=== PATIENT | male | born 1950 | race Caucasian/White ===

== ENCOUNTER 2021-07-11 07:59 | Outpatient (RCR) | payer MEDICARE, SELFPAY ==
--- NOTE | 2021-07-11 08:35 | PTOPEVAL ---
Thank you for referring ANDREA MEDRANO to [facility].? The patient is scheduled to be seen for therapy? __2__x/week for 8 visits. Please review, sign, date and return this plan of care JOSEFA. I agree with and certify that the following plan of care is medically necessary. Referring Physician Date Admitting Provider: Attending Provider: Maegan Rousseau, TOBACCO CONDITIONER Referring Provider: *PT Outpatient Evaluation Start: 07/11/21 07:16 Freq: Status: Active Protocol: Document 07/11/21 07:55 JAMES (Rec: 07/11/21 08:34 [id number]) Therapy Assessment Status Assessment Status Assessment Status Evaluation Evaluation Information Problem Diagnosis right knee pain Onset 04/18/21 Subjective Information Pt. reports that he underwent Query Text:As Reported By Patient/ right knee arthorsocopy for Family torn meniscus on 04/18/21. He reports that he has had complication in regards to pain since surgery. He states that he did develop an infection initially following surgery. Pt. reports that he recently had fluid drained from the knee which has helped to ease some pain. Before his surgery he would walk 10- 12 miles a day. He reports that he has increased his distance to about 3 miles a day with walking recently after the fluid removal. He does enjoy wood working, but is limited slightly due to pain. He reports that his goal is to be able to standa and walk without pain. Prior Level of Function Activity Level (Last 3 Months) Occupation retired Hand Dominance Right Activity of Daily Living Ability Independent Indoor/Home Mobility Independent Community Mobility Independent Stairs Ability Independent Functional Cognition (Planning, Shopping Independent , Taking Medications) Cooking Yes Cleaning Yes Laundry Yes Shopping Yes Driving Yes Pain Assessment Timing of Pain Assessment Timing of Pain Assessment Pre-Treatment Pain Scale Pain Scale Used Numeric (1 - 10) Self Report Pain Assessment
--- NOTE | 2021-07-25 08:08 | PTOPEVAL ---
Thank you for referring ANDREA MEDRANO to [facility].? The patient is scheduled to be seen for therapy? ____x/week for ___ weeks. Please review, sign, date and return this plan of care JOSEFA. I agree with and certify that the following plan of care is medically necessary. Referring Physician Date Admitting Provider: Attending Provider: Maegan Rousseau, PLANT SPECIALIST Referring Provider: *PT Outpatient Evaluation Start: 07/11/21 07:16 Freq: Status: Active Protocol: Document 07/25/21 07:00 [facility] (Rec: 07/25/21 08:05 [facility] [email or web address]) Therapy Assessment Status Assessment Status Assessment Status Progress Evaluation Information Problem Diagnosis right knee pain Onset 04/18/21 Additional Evaluation Detail LEFS = 1% functionally declined Subjective Information patient reports he elisha Query Text:As Reported By Patient/ good this date. he reports he Family has no pain this morning in the R knee. he reports he is back to nearly all prior level activities, except he has not returned to his 10-12 miles walking a day yet. Pain Assessment Timing of Pain Assessment Timing of Pain Assessment Assessment Pain Scale Pain Scale Used Numeric (1 - 10) Self Report Pain Assessment Right Knee(s) Reported Pain Level 0 Pain Score Pain Score 0: Self Report Interventions Used Interventions Used By Clinicians Activity or ADL's,Electrical Stimulation,Exercise,Heat Lower Extremity Muscle Strength Testing General Lower Extremity Strength Gross Lower Extremity Strength -right hip flexion 5/5 -left hip flexion 5/5 -right hip abduction 4/5 -left hip abduction 4/5 -right knee flexion 4+/5 -left knee flexion 5/5 -right knee extension 5/5 -left knee exetnsion 5/5 -bilateral ankle dorsiflexion 5/5 Muscle Length Testing Muscle Length Testing Left Hamstring Length 30 Query Text:(90 - 90 Position) Right Hamstring Length 25 Query Text:(90 - 90 Position) Gait Assessment Gait Pattern Assessment Gait Pattern No Deviations/Normal General Exercise General Exercises Exercise Description -NuStep level 5 x 10 min Query Text:Record Sets, Reps, -heel/toe raises x 30 ea Resistance, and Position -standing hip abd/ext/flex 2# x 30 ea sofy
--- NOTE | 2021-08-03 07:38 | PTOPEVAL ---
Thank you for referring ANDREA MEDRANO to [facility].? The patient is scheduled to be seen for therapy? ____x/week for ___ weeks. Please review, sign, date and return this plan of care JOSEFA. I agree with and certify that the following plan of care is medically necessary. Referring Physician Date Admitting Provider: Attending Provider: Maegan Rousseau, ROCK DUSTER Referring Provider: *PT Outpatient Evaluation Start: 07/11/21 07:16 Freq: Status: Active Protocol: Document 08/03/21 06:59 ACR (Rec: 08/03/21 07:37 ACR [email or web address]) Therapy Assessment Status Assessment Status Assessment Status Discharge Evaluation Information Problem Diagnosis R knee pain Onset 04/18/21 Subjective Information Patient states that he is Query Text:As Reported By Patient/ feeling much better since Family beginning therapy. He states that he had a little difficulty over the weekend but feels that is due to the drastic weather change. He states that the MD has released him due to him being able to return to all activities. Pain Assessment Timing of Pain Assessment Timing of Pain Assessment Assessment Pain Scale Pain Scale Used Numeric (1 - 10) Self Report Pain Assessment Right Knee(s) Reported Pain Level 0 Greatest Pain Intensity 6 Additional Pain Comments highest pain due to change in weather over the weekend Pain Score Pain Score 0: Self Report Interventions Used Interventions Used By Clinicians Activity or ADL's,Exercise Lower Extremity Range of Motion Knee Range of Motion Right Knee Flexion Range of Motion - Active 120 Knee Extension Range of Motion - Active 0 Query Text: Lower Extremity Muscle Strength Testing Hip Strength Bilateral Hip Flexion Strength 5 Normal Hip Abduction Strength 4 Good Knee Strength Right Knee Flexion Strength 5 Normal Knee Extension Strength 5 Normal Left Knee Flexion Strength 5 Normal Knee Extension Strength 5 Normal Muscle Length Testing Muscle Length Testing Left Hamstring Length 30 Query Text:(90 - 90 Position) Right Hamstring Length 25 Query Text:(90 - 90 Position) General Exercise General Exercises Exercise Description - heel/toe raises x 30 ea Query Text:Record Sets, Reps, - standing hip abd/ext/flex 2# Resistance, and Position x 30 ea sofy - squats x 30
== END 2021-08-03 10:16 | disposition home or self-care (01) ==
LOC: CHSPT 07:59
PROVIDERS: Visit Provider Nurse Practitioner Family
DX: S83.241A Other tear of medial meniscus, current injury, right knee, initial encounter (principal); S83.411D Sprain of medial collateral ligament of right knee, subsequent encounter
CPT/HCPCS: 97014; 97110; 97161; G0283